=== PATIENT | female | born 1995 ===

== ENCOUNTER 2017-04-17 18:07 | Emergency (ER) | payer OTHER ==
--- NOTE | 2017-04-17 19:06 | C.PDOC ---
History Of Present Illness 22 y/o female, who is currently of 7 weeks gestational age, presents to the ED for evaluation of intermittent lower abdominal pain which began around 15 days ago. Patient states her pain has worsened today and presents to the ED for further evaluation. Patient denies vaginal bleeding/discharge. Patient is . Time Seen by Provider: 04/17/17 18:44 Chief Complaint (Nursing): Abdominal Pain History Per: Patient History/Exam Limitations: no limitations Onset/Duration Of Symptoms: Intermittent Episodes (around 15 days ) Current Symptoms Are (Timing): Still Present Location Of Pain/Discomfort: Suprapubic Radiation Of Pain To:: None Quality Of Discomfort: "Pain" Exacerbating Factors: None Additional History Per: Patient Abnormal Vaginal Bleeding: No : 1 Para: 0 Past Medical History Reviewed: Historical Data, Nursing Documentation, Vital Signs Vital Signs: Last Vital Signs Temp 98.6 F 04/17/17 18:22 Pulse 81 04/17/17 18:22 Resp 16 04/17/17 18:22 BP 106/70 04/17/17 18:22 Pulse Ox 100 04/17/17 20:45 - Medical History PMH: No Chronic Diseases Surgical History: No Surg Hx Family History: States: Unknown Family Hx - Social History Hx Alcohol Use: No Hx Substance Use: No - Immunization History Hx Tetanus Toxoid Vaccination: No Hx Influenza Vaccination: Yes (2017) Hx Pneumococcal Vaccination: No Review Of Systems Constitutional: Negative for: Fever, Chills Cardiovascular: Negative for: Chest Pain, Palpitations Respiratory: Negative for: Cough, Shortness of Breath Gastrointestinal: Positive for: Abdominal Pain. Negative for: Nausea, Vomiting , Diarrhea Neurological: Negative for: Weakness, Numbness Physical Exam - Physical Exam Appears: Non-toxic, No Acute Distress Skin: Normal Color, Warm, Dry Head: Atraumatic, Normacephalic Eye(s): bilateral: Normal Inspection Oral Mucosa: Moist Neck: Supple Chest: Symmetrical, No Deformity, No Tenderness Cardiovascular: Rhythm Regular, No Murmur Respiratory: Normal Breath Sounds, No Rales, No Rhonchi, No Wheezing Gastrointestinal/Abdominal: Tenderness (mild, suprapubic ), No Guarding, No Rebound Back: Normal Inspection, No Vertebral Tenderness Extremity: Normal ROM, Capillary Refill (less than 2 seconds ) Neurological/Psych: Oriented x3, Normal Speech, Normal Cognition Gait: Steady ED Course And Treatment - Laboratory Results Result Diagrams: 04/17/17 21:06 04/17/17 20:55 O2 Sat by Pulse Oximetry: 100 (on RA) Pulse Ox Interpretation: Normal Medical Decision Making Medical Decision Making: EXAM: US First Trimester, Transabdominal CLINICAL HISTORY: 22 years old, female; Pain; Pelvic pain; ; Additional info: Abd pain R/ O ectopic LMP 02/25/17, beta pending TECHNIQUE: Real-time transabdominal obstetrical ultrasound of the maternal pelvis and a first trimester with image documentation. COMPARISON: There are no prior studies for comparison. FINDINGS: Uterus: Uterus is in a flexed. Uterus measures approximately 9.1 x 6 x 6.8 cm. Endometrium is thickened approximately 22 mm in width. No intrauterine gestation is identified. Ovaries: Neither ovary could be identified IMPRESSION: Thickened endometrium, no intrauterine or ectopic gestation identified EXAM: US , Transvaginal CLINICAL HISTORY: 22 years old, female; Pain; Pelvic pain; ; Additional info: Abd pain R/ O ectopic LMP 02/25/17, beta pending TECHNIQUE: Real-time transvaginal obstetrical ultrasound of the maternal pelvis and a first trimester with image documentation. Transvaginal imaging was used for better evaluation of the fetus and adnexa. EXAM DATE/TIME: 04/17/2017 7:06 PM COMPARISON: There are no prior studies for comparison. FINDINGS: Uterus: Uterus measures approximately 9.2 x 6.2 x 7 cm. Endometrium is thickened and heterogeneous, 17.8 mm in width. There is no intrauterine gestation. Cervix measures approximately 3.3 cm in length. Ovaries: Right ovary measures approximately 4.15 x 2.44 x 2.82 cm. Left ovary measures approximately 3.58 x 1.89 x 2.38 cm. There are multiple follicles in both ovaries. There is flow in both ovaries on Doppler imaging. Adnexa: There are no adnexal masses. Fluid: There is no free fluid IMPRESSION: Thickened endometrium, no intrauterine or ectopic gestation identified Correlation with serial beta hCG levels advised Disposition - Disposition Disposition: HOME/ ROUTINE Disposition Time: 22:14 Condition: GOOD Additional Instructions: Please follow up with your OB doctor tomorrow. Return to the ER for any worsening symptoms or for any other concerns. Prescriptions: Nitrofurantoin Macrocrystals [Macrobid] 100 mg PO BID #14 cap Instructions: Urinary Tract Infection in (ED) Forms: Gen Discharge Inst [place]ese Print Language: AMHARIC - Clinical Impression Clinical Impression: UTI (urinary tract infection) - Scribe Statement The provider has reviewed the documentation as recorded by the Scribe (Kavya Marsh) Provider Attestation: All medical record entries made by the Scribe were at my direction and personally dictated by me. I have reviewed the chart and agree that the record accurately reflects my personal performance of the history, physical exam, medical decision making, and the department course for this patient. I have also personally directed, reviewed, and agree with the discharge instructions and disposition.
--- NOTE | 2017-04-17 20:42 | US ---
EXAM: US First Trimester, Transabdominal CLINICAL HISTORY: 22 years old, female; Pain; Pelvic pain; ; Additional info: Abd pain R/O ectopic LMP 02/25/17, beta pending TECHNIQUE: Real-time transabdominal obstetrical ultrasound of the maternal pelvis and a first trimester with image documentation. COMPARISON: There are no prior studies for comparison. FINDINGS: Uterus: Uterus is in a flexed. Uterus measures approximately 9.1 x 6 x 6.8 cm. Endometrium is thickened approximately 22 mm in width. No intrauterine gestation is identified. Ovaries: Neither ovary could be identified IMPRESSION: Thickened endometrium, no intrauterine or ectopic gestation identified EXAM: US , Transvaginal CLINICAL HISTORY: 22 years old, female; Pain; Pelvic pain; ; Additional info: Abd pain R/O ectopic LMP 02/25/17, beta pending TECHNIQUE: Real-time transvaginal obstetrical ultrasound of the maternal pelvis and a first trimester with image documentation. Transvaginal imaging was used for better evaluation of the fetus and adnexa. EXAM DATE/TIME: 04/17/2017 7:06 PM COMPARISON: There are no prior studies for comparison. FINDINGS: Uterus: Uterus measures approximately 9.2 x 6.2 x 7 cm. Endometrium is thickened and heterogeneous, 17.8 mm in width. There is no intrauterine gestation. Cervix measures approximately 3.3 cm in length. Ovaries: Right ovary measures approximately 4.15 x 2.44 x 2.82 cm. Left ovary measures approximately 3.58 x 1.89 x 2.38 cm. There are multiple follicles in both ovaries. There is flow in both ovaries on Doppler imaging. Adnexa: There are no adnexal masses. Fluid: There is no free fluid. IMPRESSION: Thickened endometrium, no intrauterine or ectopic gestation identified Correlation with serial beta hCG levels advised
[2017-04-17 21:04] LABS: BASO # 0.1 K/uL (0.0-0.2); BASO % 0.6 % (0.0-2.0); EOS # 0.2 K/uL (0.0-0.7); EOS % 1.4 % (0.0-4.0); HEMOGLOBIN 12.6 g/dL (11.0-16.0); LYMPH # 3.6 K/uL (1.0-4.3); MEAN CELL VOLUME 86.4 fL (81.0-99.0); MEAN CORPUSCULAR HEMOGLOBIN 27.8 pg (27.0-31.0); MEAN CORPUSCULAR HGB CONC 32.1 g/dL (33.0-37.0); MONO # 0.9 K/uL (0.0-0.8); MONO % 5.9 % (0.0-10.0); NEUT # 10.3 K/uL (1.8-7.0); NEUT % 68.1 % (50.0-75.0); RBC 4.54 Mil/uL (3.80-5.20); RED CELL DISTRIBUTION WIDTH 14.6 % (11.5-14.5); WHITE BLOOD COUNT 15.1 K/uL (4.8-10.8)
[2017-04-17 21:07] LABS: ALBUMIN 3.7 g/dL (3.5-5.0)
[2017-04-17 21:10] LABS: ALB/GLOB RATIO 1.2 (1.0-2.1); AST/SGOT 17 U/L (14-36); GFR AFRICAN-AMERICAN > 60; GFR NON-AFRICAN AMERICAN > 60
[2017-04-17 21:11] LABS: ALT/SGPT 24 U/L (9-52); BLOOD UREA NITROGEN 15 mg/dL (7-17); CALCIUM 8.9 mg/dl (8.6-10.4)
[2017-04-17 22:03] LABS: SQUAMOUS EPITHIAL 12 /hpf (0-5); URINE BACTERIA OCC (<OCC); URINE BILIRUBIN NEGATIVE (NEGATIVE); URINE BLOOD 1+ (NEGATIVE); URINE CLARITY Hazy (Clear); URINE COLOR Yellow (YELLOW); URINE GLUCOSE (UA) NORMAL (Normal); URINE NITRATE NEGATIVE (NEGATIVE); URINE PROTEIN NEGATIVE (NEGATIVE); URINE UROBILINOGEN NORMAL mg/dL (0.2-1.0)
[2017-04-17 22:06] LABS: URINE LEUKOCYTE ESTERASE 2+ Leu/uL (Negative)
[2017-04-17 22:23] VITALS: BP 110/70; PULSE 80; RESP 14; TEMP 98; O2SAT 98
== END 2017-04-17 22:23 | disposition home or self-care (01) ==
LOC: C.ER 18:07
DX: N39.0 Urinary tract infection, site not specified (principal)

== ENCOUNTER 2017-04-24 15:46 | Emergency (ER) | payer OTHER ==
[2017-04-24 15:53] VITALS: TEMP 98.4; O2SAT 100
--- NOTE | 2017-04-24 17:04 | US ---
HISTORY: bleeding preg COMPARISON: Transvaginal ultrasound performed 04/21/17 TECHNIQUE: Transvaginal pelvic ultrasound FINDINGS: UTERUS: Measures 8.8 x 5.4 x 7.2 cm. Anteverted. ENDOMETRIUM: Measures 2.2 cm in diameter. No intrauterine gestational sac identified. CERVIX: No cervical abnormality identified. RIGHT OVARY: Measures 3.6 x 1.9 x 2.7 cm. Blood flow is demonstrated. LEFT OVARY: Measures 3.1 x 1.8 x 2.3 cm. Blood flow is demonstrated. FREE FLUID: No significant free fluid noted. OTHER FINDINGS: None. IMPRESSION: Thickened endometrium measuring approximately 2.2 cm in diameter. No intrauterine gestational sac identified. If indeed the patient is based on serum beta HCG values, the sonographic findings represent either: Very early IUP; embryonic demise; ectopic gestation. Follow-up with serial quantitative serum beta HCG measurements and post OBGYN follow-up as clinically indicated, since ectopic gestation cannot be excluded based only on sonographic findings.
[2017-04-24 17:17] LABS: BASO # 0.1 K/uL (0.0-0.2); BASO % 0.6 % (0.0-2.0); EOS # 0.3 K/uL (0.0-0.7); EOS % 2.1 % (0.0-4.0); HEMOGLOBIN 13.1 g/dL (11.0-16.0); LYMPH # 2.8 K/uL (1.0-4.3); LYMPH % 23.1 % (20.0-40.0); MEAN CORPUSCULAR HEMOGLOBIN 28.6 pg (27.0-31.0); MEAN CORPUSCULAR HGB CONC 32.4 g/dL (33.0-37.0); MEAN PLATELET VOLUME 7.8 fL (7.2-11.7); MONO # 0.8 K/uL (0.0-0.8); MONO % 6.4 % (0.0-10.0); NEUT # 8.4 K/uL (1.8-7.0); NEUT % 67.8 % (50.0-75.0); RBC 4.57 Mil/uL (3.80-5.20); RED CELL DISTRIBUTION WIDTH 14.4 % (11.5-14.5); WHITE BLOOD COUNT 12.3 K/uL (4.8-10.8)
[2017-04-24 17:19] LABS: MEAN CELL VOLUME 88.4 fL (81.0-99.0)
[2017-04-24 17:30] LABS: ALBUMIN 3.7 g/dL (3.5-5.0)
[2017-04-24 17:32] LABS: AST/SGOT 18 U/L (14-36); GFR AFRICAN-AMERICAN > 60; GFR NON-AFRICAN AMERICAN > 60; HCG,QUALITATIVE URINE POSITIVE (NEGATIVE)
[2017-04-24 17:33] LABS: ALB/GLOB RATIO 1.2 (1.0-2.1); ALT/SGPT 22 U/L (9-52); BLOOD UREA NITROGEN 10 mg/dL (7-17); CALCIUM 8.7 mg/dl (8.6-10.4)
[2017-04-24 17:36] LABS: SQUAMOUS EPITHIAL 7 /hpf (0-5); URINE BACTERIA OCC (<OCC); URINE BILIRUBIN NEGATIVE (NEGATIVE); URINE BLOOD 3+ (NEGATIVE); URINE CLARITY Hazy (Clear); URINE COLOR Yellow (YELLOW); URINE GLUCOSE (UA) NORMAL (Normal); URINE LEUKOCYTE ESTERASE TRACE Leu/uL (Negative); URINE NITRATE NEGATIVE (NEGATIVE); URINE PROTEIN NEGATIVE (NEGATIVE); URINE UROBILINOGEN NORMAL mg/dL (0.2-1.0)
--- NOTE | 2017-04-24 17:38 | C.PDOC ---
History Of Present Illness 22 y/o female presents to ED with complaints of vaginal bleeding and pelvic pain since last week, bleeding heavier today. Pt states she used 3 pads today. Denies back pain, fever, dysuria, urinary frequency or any other complaints. History of US with no IUP seen 4 days ago. She went to OB today, instructed to come to ED for further evaluation. Time Seen by Provider: 04/24/17 15:54 Chief Complaint (Nursing): Female Genitourinary History Per: Patient, Clean Up Worker History/Exam Limitations: no limitations Onset/Duration Of Symptoms: Days Current Symptoms Are (Timing): Worse Severity: Moderate Recent travel outside of the [place]: No Past Medical History Reviewed: Historical Data, Nursing Documentation, Vital Signs Vital Signs: Last Vital Signs Temp 98.4 F 04/24/17 15:51 Pulse 81 04/24/17 17:59 Resp 18 04/24/17 17:59 BP 102/63 04/24/17 17:59 Pulse Ox 100 04/24/17 17:59 Family History: States: Unknown Family Hx - Social History Hx Alcohol Use: No Hx Substance Use: No - Immunization History Hx Tetanus Toxoid Vaccination: No Hx Influenza Vaccination: Yes (2017) Hx Pneumococcal Vaccination: No Review Of Systems Constitutional: Negative for: Fever Gastrointestinal: Negative for: Vomiting Genitourinary: Positive for: Vaginal Bleeding, Pelvic Pain. Negative for: Dysuria, Frequency Physical Exam - Physical Exam Appears: Non-toxic, No Acute Distress Skin: Warm, Dry, No Rash Head: Atraumatic, Normacephalic Eye(s): bilateral: Normal Inspection, EOMI Nose: Normal Oral Mucosa: Moist Neck: Normal ROM, Supple Chest: Symmetrical Cardiovascular: Rhythm Regular Respiratory: Normal Breath Sounds, No Rales, No Rhonchi, No Wheezing Gastrointestinal/Abdominal: Normal Exam, Soft, No Tenderness Neurological/Psych: Oriented x3, Normal Speech ED Course And Treatment - Laboratory Results Result Diagrams: 04/24/17 17:11 04/24/17 17:11 O2 Sat by Pulse Oximetry: 100 (room air) Pulse Ox Interpretation: Normal - CT Scan/US US transvag Other Rad Studies (CT/US): Read By Radiologist, Radiology Report Reviewed CT/US Interpretation: Accession No. : [id number]. Patient Name / ID : ROSS MICHELEEmy GRAYSON / [id number]. Exam Date : 04/24/2017 16:35:05 ( Approved ). Study Comment : Sex / Age : F / 22Y. Creator : Iraida Jeffers MD. Dictator : Iraida Jeffers MD. Hairspring Cutter : Geological Specialist : Iraida Jeffers MD. Approver2 : Report Date : 04/24/2017 17:02:58. My Comment : . HISTORY: bleeding preg. COMPARISON: Transvaginal ultrasound performed 04/21/17. TECHNIQUE: Transvaginal pelvic ultrasound. FINDINGS: UTERUS: Measures 8.8 x 5.4 x 7.2 cm. Anteverted. ENDOMETRIUM: Measures 2.2 cm in diameter. No intrauterine gestational sac identified. CERVIX : No cervical abnormality identified. RIGHT OVARY: Measures 3.6 x 1.9 x 2.7 cm. Blood flow is demonstrated. LEFT OVARY: Measures 3.1 x 1.8 x 2.3 cm. Blood flow is demonstrated. FREE FLUID: No significant free fluid noted. OTHER FINDINGS: None. IMPRESSION: Thickened endometrium measuring approximately 2.2 cm in diameter. No intrauterine gestational sac identified. If indeed the patient is based on serum beta HCG values, the sonographic findings represent either: Very early IUP; embryonic demise; ectopic gestation. Follow-up with serial quantitative serum beta HCG measurements and post OBGYN follow-up as clinically indicated, since ectopic gestation cannot be excluded based only on sonographic findings. Progress Note: Plan: labs, US transvaginal, UA. Beta HCG today 178. Previous HC > 284 > 270. Discsused with pt since she is having increased bleeding and decreased beta hcg, likely spontaneous AB. Cant not r/o ectopic therefore instructed strict followup with OB in 3-4 days for re-evaluation or return to ER if symtpoms persist or worsen. Adjunct Teacher used to ensure understanding. Disposition - Disposition [facility] Disposition: HOME/ ROUTINE Disposition Time: 18:00 Condition: STABLE Additional Instructions: Beta HCG today is 178. Follow up with your OBGYN for re-evaluation in 3-4 days. Return to ER if symptoms persist or worsen. Instructions: Spontaneous Miscarriage (ED) Print Language: [place] - Clinical Impression Clinical Impression: Spontaneous - PA / UNIVERSITY LIBRARIAN / Resident Statement MD/DO has reviewed & agrees with the documentation as recorded. - Scribe Statement The provider has reviewed the documentation as recorded by the Scribe Enio Locke All medical record entries made by the Lindaibirma were at my direction and personally dictated by me. I have reviewed the chart and agree that the record accurately reflects my personal performance of the history, physical exam, medical decision making, and the department course for this patient. I have also personally directed, reviewed, and agree with the discharge instructions and disposition.
[2017-04-24 17:59] VITALS: BP 102/63; PULSE 81; RESP 18
== END 2017-04-24 18:15 | disposition home or self-care (01) ==
LOC: C.ER 15:46
DX: O03.9 Complete or unspecified spontaneous abortion without complication (principal)

== ENCOUNTER 2017-07-05 08:56 | Emergency (ER) | payer OTHER, SELFPAY ==
[2017-07-05 09:06] VITALS: TEMP 98.3
[2017-07-05 10:01] LABS: URINE BILIRUBIN NEGATIVE (NEGATIVE); URINE BLOOD 1+ (NEGATIVE); URINE COLOR Yellow (YELLOW); URINE GLUCOSE (UA) NORMAL (Normal); URINE KETONE NEGATIVE (NEGATIVE); URINE LEUKOCYTE ESTERASE TRACE Leu/uL (Negative); URINE PROTEIN NEGATIVE (NEGATIVE); URINE UROBILINOGEN NORMAL mg/dL (0.2-1.0); WBC URINE 1 /hpf (0-5)
--- NOTE | 2017-07-05 10:47 | C.PDOC ---
History Of Present Illness 22 year old female presents to the ED for evaluation of fever, chills, generalized body aches, headache, and right ear pain which began around 2 days ago. Patient is afebrile in triage. Patient denies cough, nausea, vomiting, and has no other complaints at this time. Time Seen by Provider: 07/05/17 09:30 Chief Complaint (Nursing): Flu-like Symptoms History Per: Patient History/Exam Limitations: no limitations Onset/Duration Of Symptoms: Days (2) Current Symptoms Are (Timing): Still Present Location Of Pain: Ear(s) (right), Diffuse Myalgias, Headache Sick Contacts (Context): None Associated Symptoms: Fever, Chills Ear Symptoms: Left: None, Right: Ear Pain Additional History Per: Patient Past Medical History Reviewed: Historical Data, Nursing Documentation, Vital Signs Vital Signs: Last Vital Signs Temp 98.3 F 07/05/17 09:03 Pulse 72 07/05/17 11:13 Resp 18 07/05/17 11:13 BP 119/69 07/05/17 11:13 Pulse Ox 99 07/05/17 14:01 - Medical History PMH: No Chronic Diseases Surgical History: No Surg Hx Family History: States: Unknown Family Hx - Social History Hx Alcohol Use: No Hx Substance Use: No - Immunization History Hx Tetanus Toxoid Vaccination: No Hx Influenza Vaccination: Yes (01/2017) Hx Pneumococcal Vaccination: No Review Of Systems Constitutional: Positive for: Fever, Chills ENT: Positive for: Ear Pain (right) Respiratory: Negative for: Cough Gastrointestinal: Negative for: Nausea, Vomiting Musculoskeletal: Positive for: Other (generalized body aches ) Neurological: Positive for: Headache Physical Exam - Physical Exam Appears: Non-toxic, No Acute Distress Skin: Normal Color, Warm, Dry Head: Atraumatic, Normacephalic, No Tenderness (mastoid) Eye(s): bilateral: Normal Inspection Ear(s): Left: Normal, Right: TM Erythema Nose: Normal, No Discharge Oral Mucosa: Moist Throat: Normal, No Erythema, No Exudate Neck: Supple Chest: Symmetrical, No Deformity, No Tenderness Cardiovascular: Rhythm Regular, No Murmur Respiratory: Normal Breath Sounds, No Rales, No Rhonchi, No Wheezing Extremity: Normal ROM, Capillary Refill (less than 2 seconds ) Neurological/Psych: Normal Speech, Normal Cognition Gait: Steady ED Course And Treatment O2 Sat by Pulse Oximetry: 99 (on RA ) Pulse Ox Interpretation: Normal Progress Note: UA ordered and reviewed. Patient received Amoxicillin PO and Motrin PO. On reassessment, patient is resting comfortably, remains afebrile in the ED, and is showing no signs of distress. Patient is stable for discharge and is advised to follow up with her PMD within 1-2 days for further evaluation. Disposition - Disposition Disposition: HOME/ ROUTINE Disposition Time: 10:45 Condition: STABLE Additional Instructions: Follow up with your PMD within 1-2 days. Return to ED if feel worse. Prescriptions: Amoxicillin [Amoxil 500 mg Cap] 500 mg PO Q8 #30 cap Ibuprofen [Motrin Tab] 600 mg PO Q8 #30 tab Instructions: Otitis Media (ED) Forms: [employer] (B[place]ian) - Clinical Impression Clinical Impression: Otitis media - PA / ADMINISTRATION PROFESSIONAL / Resident Statement MD/DO has reviewed & agrees with the documentation as recorded. - Scribe Statement The provider has reviewed the documentation as recorded by the Scribe (Kavya Marsh) All medical record entries made by the Scribe were at my direction and personally dictated by me. I have reviewed the chart and agree that the record accurately reflects my personal performance of the history, physical exam, medical decision making, and the department course for this patient. I have also personally directed, reviewed, and agree with the discharge instructions and disposition.
[2017-07-05 11:14] VITALS: BP 119/69; PULSE 72; RESP 18
[2017-07-05 12:24] VITALS: O2SAT 99
== END 2017-07-05 11:14 | disposition home or self-care (01) ==
LOC: C.ER 08:56
DX: H66.91 Otitis media, unspecified, right ear (principal)